=== PATIENT | female | born 1965 | race Caucasian/White ===

== ENCOUNTER 2016-11-13 10:09 | Outpatient (CLI) | payer BC ==
--- NOTE | 2016-11-13 11:18 | DIAGNOSTIC IMAGING REPORT ---
PROCEDURE: US VENOUS - RIGHT EXT INDICATION: Right arm pain. History of deep vein thrombosis. Coumadin. TECHNIQUE: Color Doppler duplex imaging of the deep and superficial venous system without and with compression. COMPARISON: Venous ultrasound of the right upper extremity on and 05/03/1958 and 11/21/2015 FINDINGS: Deep and superficial venous system of the right upper extremity is within normal limits. There is no evidence of deep vein thrombosis or superficial thrombophlebitis. The previously described thrombus in one of the paired brachial veins has resolved. IMPRESSION: 1. Negative venous ultrasound of the right upper extremity. No evidence of deep vein thrombosis or superficial thrombophlebitis.
== END 2016-11-13 23:00 ==
LOC: US SRH 10:09
DX: C50.911 Malignant neoplasm of unspecified site of right female breast (principal); M79.601 Pain in right arm; Z86.718 Personal history of other venous thrombosis and embolism; Z79.01 Long term (current) use of anticoagulants